=== PATIENT | female | born 2000 | race Caucasian/White ===

== ENCOUNTER 2019-10-14 23:18 | Emergency (ER) | payer OTHER ==
[~2019-10-14 23:18] MED LIST: AZIT500T4 PO; PRED50TA PO
[2019-10-14 23:35] VITALS: BP 113/74
[2019-10-15] MEDS ORDERED: ACETAMINOPHEN 500 MG TABLET PO ONE (00:30)
[2019-10-15] MEDS ORDERED: DEXAMETHASONE SOD PHOS 20 MG/5 ML VIAL. IM ONE (00:30)
[2019-10-15] MEDS ORDERED: diphenhydrAMINE HCL 25 MG CAPSULE PO ONE (00:30)
[2019-10-15] MEDS ORDERED: PENICILLIN G BENZATHINE LA 1,200,000 UNIT/2 ML DISP.SYRIN. IM ONE (00:30)
--- NOTE | 2019-10-15 00:41 | PHYS DOC ---
Past Medical History Past Medical History: Asthma, Hypertension Past Surgical History: No Surgical History Alcohol Use: None Drug Use: None Adult General Chief Complaint Chief Complaint: EARACHE/EAR PAIN HPI HPI Patient is a 19 year old female who presents to the ED today complaining of a sore throat that began 3 days ago and right ear pain that began today. Patient denies any fever coughing or congestion. She reports she was seen at urgent care yesterday and they did nothing for her though mother states patient was given azithromycin which they believe is not working. Review of Systems Review of Systems Constitutional: Denies fever or chills [] Eyes: Denies change in visual acuity, redness, or eye pain [] HENT: Reports sore throat and right ear pain. Denies nasal congestion Respiratory: Denies cough or shortness of breath [] Cardiovascular: No additional information not addressed in HPI [] GI: Denies abdominal pain, nausea, vomiting, bloody stools or diarrhea [] : Denies dysuria or hematuria [] Musculoskeletal: Denies back pain or joint pain [] Integument: Denies rash or skin lesions [] Neurologic: Denies headache, focal weakness or sensory changes [] All other systems were reviewed and found to be within normal limits, except as documented in this note. Current Medications Current Medications Current Medications Medications (Trade) Dose Ordered Sig/Kevin Start Time Stop Time Status Last Admin Dose Admin Acetaminophen (Tylenol) 1,000 mg 1X ONCE 10/15/19 00:30 10/15/19 00:31 DC 10/15/19 00:32 1,000 MG Dexamethasone Sodium Phosphate (Decadron) 10 mg 1X ONCE 10/15/19 00:30 10/15/19 00:31 DC 10/15/19 00:33 10 MG Diphenhydramine HCl (Benadryl) 25 mg 1X ONCE 10/15/19 00:30 10/15/19 00:31 DC 10/15/19 00:32 25 MG Penicillin G Benzathine (Bicillin L-A) 1,200,000 unit 1X ONCE 10/15/19 00:30 10/15/19 00:31 DC 10/15/19 00:34 1,200,000 UNIT Allergies Allergies Allergies Coded Allergies Type Severity Reaction Last Updated Verified Penicillins Allergy Mild CHILDHOOD REACTION 10/15/19 Yes Physical Exam Physical Exam Constitutional: Well developed, well nourished, no acute distress, non-toxic appearance. [] HENT: Normocephalic, atraumatic, bilateral external ears normal, oropharynx moist, no oral exudates, nose normal. [] Right TM with mild amount of cerumen. TM can't be visualized but does not appear erythematous. +2 tonsils with mild erythema and trace amount exudate bilaterally +2 anterior cervical adenopathy Eyes: PERRLA, EOMI, conjunctiva normal, no discharge. [] Neck: Normal range of motion, no tenderness, supple, no stridor. [] Cardiovascular:Heart rate regular rhythm, no murmur [] Lungs & Thorax: Bilateral breath sounds clear to auscultation [] Abdomen: Bowel sounds normal, soft, no tenderness, no masses, no pulsatile masses. [] Skin: Warm, dry, no erythema, no rash. [] Back: No tenderness, no CVA tenderness. [] Extremities: No tenderness, no cyanosis, no clubbing, ROM intact, no edema. [] Neurologic: Alert and oriented X 3, normal motor function, normal sensory function, no focal deficits noted. [] Psychologic: Affect normal, judgement normal, mood normal. [] Current Patient Data Vital Signs Vital Signs Date Time Temp Pulse Resp B/P (MAP) Pulse Ox O2 Delivery O2 Flow Rate FiO2 10/14/19 23:35 98.3 90 18 113/74 (87) 96 Room Air 98.3 EKG EKG [] Radiology/Procedures Radiology/Procedures [] Course & Med Decision Making Course & Med Decision Making Pertinent Labs and Imaging studies reviewed. (See chart for details) This is a 19-year-old female patient presenting with acute tonsillitis and right otalgia. Was given azithromycin yesterday at urgent care which she believes is not working though she is only taken one time dose. We gave her penicillin IM in the ED and prednisone. Discharged to home. OTC Debrox for cerumen removal. Dragon Disclaimer Dragon Disclaimer This electronic medical record was generated, in whole or in part, using a voice recognition dictation system. Departure Departure Impression: Primary Impression: Acute tonsillitis Additional Impressions: Otalgia of right ear Cerumen impaction Disposition: HOME, SELF-CARE Condition: STABLE Referrals: SOLTYS,ONEIL L DO (PCP) follow up with your doctor next week Patient Instructions: Cerumen Impaction, Otalgia-Brief, Tonsillitis Additional Instructions: You were given antibiotics injection in the emergency room Stop taking the Z-pack you got from urgent care You can take salt water gurgles for sore throat. Please use over the counter debrox for ear wax removal You can take Tylenol or motrin for fever or pain Problem Qualifiers Primary Impression: Acute tonsillitis Pharyngitis/tonsillitis etiology: unspecified etiology Qualified Codes: J03.90 - Acute tonsillitis, unspecified Additional Impressions: Cerumen impaction Laterality: right Qualified Codes: H61.21 - Impacted cerumen, right ear DEEPIKA DIAZ APRN Oct 15, 2019 00:41
== END 2019-10-15 00:45 | disposition home or self-care (01) ==
LOC: ER 23:18
DX: J03.90 Acute tonsillitis, unspecified (principal); H61.21 Impacted cerumen, right ear; I10 Essential (primary) hypertension; J45.909 Unspecified asthma, uncomplicated; Z88.0 Allergy status to penicillin
CPT/HCPCS: 96372; 99284; J0561; J1100; Q0163